=== PATIENT | female | born 1960 ===

== ENCOUNTER 2020-11-26 07:46 | Day surgery (SDC) | payer BC ==
[~2020-11-26] VITALS: Ht 162.6 cm; Wt 64.9 kg
[~2020-11-26 07:46] MED LIST: BIRTH CONTROL; CLARITIN-D 121 EAC1 PO; FLONASE ALLERG9.9 ML; ZYRTEC10 M2 PO
[2020-11-26] MEDS ORDERED: FISH OIL 1,2001 EAC7 (08:21)
== END 2020-11-26 09:58 | disposition home or self-care (01) ==
LOC: ORSCSDS 07:46
PROVIDERS: Internal Medicine Gastroenterology
PROC: 0DJD8ZZ Inspection of Lower Intestinal Tract, Via Natural or Artificial Opening Endoscopic (ICD-10-PCS; principal; 2020-11-26 09:00)
DX: Z12.11 Encounter for screening for malignant neoplasm of colon (principal); K21.9 Gastro-esophageal reflux disease without esophagitis
CPT/HCPCS: J0330; J0461; J2405; J2704; J7120